=== PATIENT | male | born 1985 | race Two or more races ===

== ENCOUNTER 2025-07-18 14:16 | Emergency (ER) | payer MEDICAID, OTHER ==
[~2025-07-18] VITALS: Ht 180.3 cm; Wt 80.0 kg
[2025-07-18 14:25] VITALS: BP 138/98; TEMP 98.6; O2SAT 100
[2025-07-18 14:41] LABS: Hematocrit 40.9 % (41.0-53.0); Hemoglobin 14.4 g/dL (13.5-17.5); Mean Corpuscular Hemoglobin 31.6 pg (28.0-32.0); Mean Corpuscular Volume 89.8 fL (80.0-100.0); Nucleated Red Blood Cells % 0.0 %
--- NOTE | 2025-07-18 14:52 | DVH ---
EXAM: XY CHEST PORTABLE HISTORY: CHEST PAIN TECHNIQUE: 1 view of the chest COMPARISON: None FINDINGS/IMPRESSION: LUNGS: No pleural effusion, consolidation, or pneumothorax. MEDIASTINUM: Unremarkable. BONES: No acute osseous abnormality. OTHER: None.
[2025-07-18 14:58] LABS: Alanine Aminotransferase 29 U/L (7-40); Albumin 4.5 g/dL (3.2-4.8); Alkaline Phosphatase 59 U/L (46-116); Anion Gap 9 (5-15); BUN/Creatinine Ratio 15.7 (10.0-20.0); Blood Urea Nitrogen 17 mg/dL (9-23); Calcium 9.3 mg/dL (8.7-10.4); Carbon Dioxide 29 mmol/L (20-31); Chloride 102 mmol/L (98-107); Glucose 103 mg/dL (74-106); Potassium 4.2 mmol/L (3.5-5.1); Sodium 140 mmol/L (136-145); Total Protein 7.5 g/dL (5.7-8.2)
[2025-07-18 14:59] LABS: Bilirubin, Total 0.4 mg/dL (0.2-1.0)
[2025-07-18] MEDS ORDERED: IBUPROFEN 600 MG TAB PO ONE (15:00)
--- NOTE | 2025-07-18 15:14 | ED.PDOC ---
HPI Comments 40 y/o M, with no prior cardiac medical history presents to the ED for CC of chest pain. Patient states, he has been experiencing left-sided chest pain that radiates to his left arm onset, Thursday (07/16/25). Patient reports, taking Ibuprofen 800mg at home for the pain and experiencing temporary relief. Patient denies shortness of breath, cough, dizziness, headache, weakness, numbness, or bilateral leg swelling. Chief Complaint: Chest Pain Time Seen by MD: 15:00 Reviewed Notes: Nurses Notes, Medications, Allergies Allergies: Coded Allergies: NO KNOWN ALLERGIES (Unverified , 07/18/25) Information Source: Patient Mode of Arrival: Ambulatory Severity: Moderate Timing: Days Duration: Since onset Prehospital treatment: None Location: Chest (L) Radiation: Arm (L) Quality: Sharp Onset: At Rest Cardiac Risk Factors: None PE Risk Factors: None History of: None Modifying Factors: Nothing Associated Signs and Symptoms: None Past Medical History PAST MEDICAL HISTORY: Denies Surgical History: Denies all surgeries Family History Family History: Unknown Social History Smoker: Non-Smoker Alcohol: Denies ETOH Use Drugs: Denies Drug Use Lives In: Home Constitutional: denies: chills, diaphoresis, fatigue, fever, malaise, sweats, weakness, others EENTM: denies: blurred vision, double vision, ear bleeding, ear discharge, ear drainage, ear pain, ear ringing, eye pain, eye redness, hearing loss, mouth pain, mouth swelling, nasal discharge, nose bleeding, nose congestion, nose pain, photophobia, tearing, throat pain, throat swelling, voice changes, others Respiratory: denies: cough, hemoptysis, orthopnea, SOB at rest, shortness of breath, SOB with excertion, stridor, wheezing, others Cardiovascular: reports: chest pain; denies: dizzy spells, diaphoresis, Dyspnea on exertion, edema, irregular heart beat, left arm pain, lightheadedness, palpitations, PND, syncope, others Gastrointestinal: denies: abdomen distended, abdominal pain, blood streaked bowels, constipated, diarrhea, dysphagia, difficulty swallowing, hematemesis, melena, nausea, poor appetite, poor fluid intake, rectal bleeding, rectal pain, vomiting, others Genitourinary: denies: burning, dysuria, flank pain, frequency, hematuria, incontinence, penile discharge, penile sore, pain, testicle pain, testicle swelling, urgency, others Neurological: denies: dizziness, fainting, headache, left sided numbness, left sided weakness, numbness, paresthesia, pre-existing deficit, right sided numbness, right sided weakness, seizure, speech problems, tingling, tremors, weakness, others Musculoskeletal: denies: back pain, gout, joint pain, joint swelling, muscle pain, muscle stiffness, neck pain, others Integumetry: denies: bruises, change in color, change in hair/nails, dryness, laceration, lesions, lumps, rash, wounds, others Allergic/Immunocompromised: denies: Difficulty Healing, Frequent Infections, Hives, Itching, others Hematologic/Lymphatic: denies: anemia, blood clots, easy bleeding, easy bruising, swollen glands, others Endocrine: denies: excessive hunger, excessive sweating, excessive thirst, excessive urination, flushing, intolerance to cold, intolerance to heat, unexplained weight gain, unexplained weight loss, others Psychiatric: denies: anxiety, bipolar disorder, depression, hopeless, panic di sorder, schizophrenia, sleepless, suicidal, others All Other Systems: Reviewed and Negative Physical Exam General Appearance: No Apparent Distress, Normal HEENT: Normal ENT Inspection, Pharynx Normal Neck: Full Range of Motion, Non-Tender, Normal, Normal Inspection Respiratory: Chest Non-Tender, Lungs Clear, No Accessory Muscle Use, No Respiratory Distress, Normal Breath Sounds Cardiovascular: No Edema, No Murmur, No Gallop, Normal Peripheral Pulses, Regular Rate/Rhythm Breast Exam: Deferred Gastrointestinal: No Organomegaly, Non Tender, No Pulsatile Mass, Normal Bowel Sounds, Soft Genitalia: Deferred Pelvic: Deferred Rectal: Deferred Extremities: No calf tenderness, Normal capillary refill, Normal inspection, Normal range of motion, Non-tender, No pedal edema Musculoskeletal : Location: Left Extremity Location: Arm Apperance: Tenderness (along tricep area) Neurologic: Alert, machine cell tuber II-XII nml as Tested, No Motor Deficits, Normal Affect, Normal Mood, No Sensory Deficits Cerebellar Function: Normal Reflexes: Normal Skin: Dry, Normal Color, Warm Lymphatic: No Adenopathy EKG EKG : Pulse Rate (adult): 76 [place]: Normal Cardiac Rhythm: NSR Hypertrophy: None ST: Normal Was a procedure done? Was a procedure done?: No CP Differential Dx Differential Diagnosis: Angina, PSVT, Other Differential Diagnosis: Chest Wall Pain, Costochondritis X-Ray, Labs, Meds, VS Vital Signs Date Time Temp Pulse Resp B/P (MAP) Pulse Ox O2 Delivery O2 Flow Rate FiO2 07/18/25 15:20 76 07/18/25 14:25 98.6 87 16 138/98 100 98.6 07/18/25 14:21 80 Lab Test 07/18/25 15:26 07/18/25 14:29 Range/Units Troponin I High Sensitivity < 3 L < 3 L </=54 ng/L White Blood Count 7.1 4.4-10.8 10^3/uL Red Blood Count 4.56 4.5-5.90 10^6/uL Hemoglobin 14.4 13.5-17.5 g/dL Hematocrit 40.9 L 41.0-53.0 % Mean Corpuscular Volume 89.8 80.0-100.0 fL Mean Corpuscular Hemoglobin 31.6 28.0-32.0 pg Mean Corpuscular Hemoglobin Concent 35.2 32.0-36.0 g/dL Red Cell Distribution Width 12.5 11.8-14.3 % Platelet Count 242 140-450 10^3/uL Mean Platelet Volume 7.1 6.9-10.8 fL Neutrophils (%) (Auto) 61.0 37.0-80.0 % Lymphocytes (%) (Auto) 25.1 10.0-50.0 % Monocytes (%) (Auto) 11.2 0.0-12.0 % Eosinophils (%) (Auto) 2.1 0.0-7.0 % Basophils (%) (Auto) 0.6 0.0-2.0 % Neutrophils # (Auto) 4.3 1.6-8.6 10 ^3/uL Lymphocytes # (Auto) 1.8 0.4-5.4 10 ^3/uL Monocytes # (Auto) 0.8 0-1.3 10 ^3/uL Eosinophils # (Auto) 0.2 0-0.8 10 ^3/uL Basophils # (Auto) 0 0-0.2 10 ^3/uL Nucleated Red Blood Cells 0.0 % Sodium Level 140 136-145 mmol/L Potassium Level 4.2 3.5-5.1 mmol/L Chloride Level 102 98-107 mmol/L Carbon Dioxide Level 29 20-31 mmol/L Anion Gap 9 5-15 Blood Urea Nitrogen 17 9-23 mg/dL Creatinine 1.08 0.700-1.30 mg/dL Glomerular Filtration Rate Calc 88 >90 mL/min BUN/Creatinine Ratio 15.7 10.0-20.0 Serum Glucose 103 74-106 mg/dL Calcium Level 9.3 8.7-10.4 mg/dL Total Bilirubin 0.4 0.2-1.0 mg/dL Aspartate Amino Transferase (AST) 24 13-40 U/L Alanine Aminotransferase (ALT) 29 7-40 U/L Alkaline Phosphatase 59 46-116 U/L Total Protein 7.5 5.7-8.2 g/dL Albumin 4.5 3.2-4.8 g/dL [place] [id number] Ph: [phone] DIAGNOSTIC IMAGING Diagnostic Imaging Report : [id number] Signed PATIENT: JUAN R MCRAE ACCT: [id number] UNIT: [id number] : 1985 LOC: ER ROOM / BED: / AGE / SEX: 40 / M ADM STATUS: REG ER SERVICE 18 ORDERING PHYSICIAN: ARAVIND ENRIQUE MD PROCEDURE(s): CXRP - CHEST PORTABLE REASON: CHEST PAIN ORDER NUMBER(s): [id number], ACCESSION NUMBER(s): [id number] EXAM: XY CHEST PORTABLE HISTORY: CHEST PAIN TECHNIQUE: 1 view of the chest COMPARISON: None FINDINGS/IMPRESSION: LUNGS: No pleural effusion, consolidation, or pneumothorax. MEDIASTINUM: Unremarkable. BONES: No acute osseous abnormality. OTHER: None. ATED BY: KEHINDE ZIMMERMAN MD DICTATED DATE/TIME: 07/18/251449 SIGNED BY: KEHINDE ZIMMERMAN MD SIGNED DATE/TIME: 07/18/251449 CC: Time of 1ST Reevaluation: 15:30 Reevaluation 1ST: Unchanged Patient Education/Counseling: Diagnosis, Treatment Family Education/Counseling: Diagnosis, Treatment SEPSIS Sepsis Screen Date sepsis recognized/suspect: Jul 18, 2025 Time Sepsis recognized/suspect: 1429 Recent Procedure: No (T) On Antibiotic Therapy: No (N) Respiratory Rate >20: No Heart Rate >90: No Temp<36 C (96.8 F) or >38.3 C: No SBP <90 or MAP <65 mmHG: No New Acute Mental Status Change: No Is the patient on CPAP, BIPAP,: No Physician Orders Chest Portable (07/18/25 14:19) Urinalysis (07/18/25 14:19) Troponin-I Hs (07/18/25 17:19) Electrocardigram (07/18/25 15:19) Electrocardigram (07/18/25 17:19) Vital Signs Date Time Temp Pulse Resp B/P (MAP) Pulse Ox O2 Delivery O2 Flow Rate FiO2 07/18/25 15:20 76 07/18/25 14:25 98.6 87 16 138/98 100 98.6 07/18/25 14:21 80 Laboratory Tests Test 07/18/25 14:29 White Blood Count 7.1 10^3/uL (4.4-10.8) Departure 1 Departure Time of Disposition: 16:19 (Sent in for evaluation of constant left upper extremity pain over the past 4 days. No gross deformity of the upper extremity. Has full range of motion. Discomfort located mostly along the triceps area, could be consistent with a muscular strain. Suspect that the patient is now having associated connected left upper chest wall discomfort as he also now has left after back pain as well. Patient has normal neuro, motor function, no neck pain, does not warrant any emergent MR imaging of the cervical spine. Given the reports of chest discomfort cardiac workup was obtained. Serial troponins were obtained which remained negative. Patient has a heart score of 0. Pt has a nonischemic EKG. CBC shows no evidence of critical leukocytosis or significant anemia. Metabolic panel with no evidence of acute kidney insufficiency or acute electrolyte abnormalities. Patient was treated for discomfort with IM Toradol, oral Tylenol, topical lidocaine patch and Flexeril. Feeling improved after interventions. Stable for discharge further outpatient management. Advised to take Tylenol, ibuprofen as needed for discomfort.) Impression: Primary Impression: Left upper arm pain Additional Impressions: Left-sided chest wall pain Upper back pain on left side Disposition: HOME / SELF CARE / HOMELESS Condition: Stable Additional Instructions: You were evaluated today for left arm pain radiating up into her chest. You will likely have any muscular strain. Continue to take Tylenol, ibuprofen as needed for discomfort over the upcoming days. You may also take [id number] lidocaine patches (Salonpas) which is similar to the patches that were applied on your skin today. If you continue to have recurrent discomfort you must follow up with your outpatient primary care doctor as you may need further outpatient imaging. Discharged With: Self Critical Care Note Critical Care Time?: No Stability Stability form required: No Heart Score Heart Score: Heart Score Response (Comments) Value History N/A 0 EKG N/A 0 Age N/A 0 Risk Factors N/A 0 Troponin N/A 0 Total 0 I personally scribed for ALFRED SORTO MD ([place]) on 07/18/25 at 15:14. Electronically submitted by Deepika Jacques ([address]). I personally scribed for ALFRED SORTO MD ([place]) on 07/18/25 at 15:15. Electronically submitted by Deepika Jacques ([employer]). ALFRED SORTO MD Jul 18, 2025 15:14
[2025-07-18] MEDS ORDERED: LIDOCAINE 5% TOPICAL PATCH TOP ONE (15:15)
--- NOTE | 2025-07-18 15:21 | ECG ---
[facility] Test Date: 2025-07-18 Test Time: 15:20:51 Pat Name: JUAN R MCRAE Department[facility] ED Patient [facility]: [id number] Room: Gender: M Captain Waiter: henok : 1985 Requested By: ARAVIND ENRIQUE Order Number: [id number] Reading MD: Barry Alfaro Measurements Intervals [place] Rate: 76 P: 72 PA: 148 QRS: 63 QRSD: 90 T: 26 QT: 376 QTc: 423 Interpretive Statements Sinus rhythm Probable left ventricular hypertrophy Electronically Signed On 07-18-2025 18:02:25 PST by Barry Alfaro Please click the below link to view image of tracing.
[2025-07-18 16:25] VITALS: PULSE 76
[2025-07-18] MEDS: CYCLOBENZAPRINE HCL 10 MG TAB PO ONE (16:58)
[2025-07-18] MEDS: ACETAMINOPHEN 500 MG TAB or CAP PO ONE (16:59)
[2025-07-18] MEDS: KETOROLAC TROMETH 60MG/2ML VIAL IM ONE (16:59)
[2025-07-18 17:12] VITALS: RESP 84
--- NOTE | 2025-07-19 05:53 | ECG ---
[facility] Test Date: 2025-07-18 Test Time: 14:21:55 Pat Name: JUAN R MCRAE Department: ED Room: Gender: M [employer] Supervisor: DR RYAN: 1985 Requested By: ARAVIND ENRIQUE Order Number: [id number] Reading MD: Barry Alfaro Measurements Intervals [place] Rate: 80 P: 71 NV: 150 QRS: 72 QRSD: 88 T: 33 QT: 368 QTc: 425 Interpretive Statements Sinus rhythm Electronically Signed On 07-19-2025 18:54:28 PST by Barry Alfaro Please click the below link to view image of tracing.
== END 2025-07-18 17:13 | disposition home or self-care (01) ==
LOC: ER 14:16
DX: M79.622 Pain in left upper arm (principal); R07.89 Other chest pain; M54.6 Pain in thoracic spine
CPT/HCPCS: 36415; 71045; 80053; 84484; 85025; 93005; 96372; 99285; J1885